=== PATIENT | female | born 1955 | race Caucasian/White ===

== ENCOUNTER → 2019-01-19 | Outpatient (CLI) | payer BC ==
[2019-01-19 13:32] VITALS: BP 114/72; PULSE 80; RESP 16; TEMP 98.5; BMI 27.1
--- NOTE | 2019-01-19 14:20 | P.HPOB ---
History of Present Illness H&P Date: 01/19/19 Chief Complaint: The patient is here for her routine gynecologic exam and ma mmogram. This is a 63-year-old a with an LMP of approximately 2008. The patient is here to establish with this office. It has been about 5 years since her last pelvic exam. The patient is without gynecologic complaints and denies any postmenopausal bleeding. Review of Systems The patient's weight has been stable over the last year. She denies respiratory, cardiac, or G.I. problems. Past Medical History Past Medical History: Asthma, GERD/Reflux, Hyperlipidemia, Skin Disorder Additional Past Medical History / Comment(s): Seasonal allergies, glaucoma, IBS ,ROSACEA. 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 History of Any Multi-Drug Resistant Organisms: None Reported Past Surgical History: Orthopedic Surgery Additional Past Surgical History / Comment(s): X 2, MULT BARTHOLIN GLAND EXCISIONS, BONE SPUR REMOVED FROM WRIST,BUNNIONECTOMY JODIE FEET. Colonoscopy 2013(2nd). Past Anesthesia/Blood Transfusion Reactions: Motion Sickness Past Psychological History: Anxiety, Depression Smoking Status: Former smoker Past Alcohol Use History: None Reported Additional Past Alcohol Use History / Comment(s): QUIT SMOKING APPROX , SMOKED APPROX 10 YRS ON AND OFF Past Drug Use History: None Reported Additional History: The patient is and is not seeing anybody at this time. 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 - Past Family History Father Family Medical History: Cancer, Dementia Additional Family Medical History / Comment(s): SKIN CA. Paternal grandfather had leukemia and a paternal aunt had some type of blood cancer. Paternal grandmother had breast cancer. Mother Family Medical History: COPD Additional Family Medical History / Comment(s): Maternal grandmother had diabetes. Medications and Allergies Home Medications Medication Instructions Recorded Confirmed Type ALPRAZolam [Xanax] 0.5 mg PO DAILY PRN 10/17/14 01/19/19 History Cetirizine HCl [Zyrtec] 10 mg PO DAILY 10/17/14 01/19/19 History Dicyclomine HCl [Bentyl] 20 mg PO BID 10/17/14 01/19/19 History Fluticasone Nasal Kersey [Flonase 1 spray EA NOSTRIL DAILY 10/17/14 01/19/19 History Nasal Kersey] Venlafaxine HCl ER [Effexor Xr] 150 mg PO BID 10/17/14 01/19/19 History metroNIDAZOLE 0.75% CREAM 1 applic TOPICAL BID PRN 10/17/14 01/19/19 History [Metrocream] Budesonide-Formot 160-4.5 Mcg 2 puff INHALATION BID 01/19/19 01/19/19 History [Symbicort 160-4.5 Mcg Inhaler] Cholecalciferol [Vitamin D3 (25 5,000 unit PO DAILY 01/19/19 01/19/19 History Mcg = 1000 Iu)] Doxycycline [Vibramycin] 50 mg PO Q12HR 01/19/19 01/19/19 History Ketotifen Fumarate [Zaditor] 1 drop BOTH EYES DAILY 01/19/19 01/19/19 History Latanoprost/Pf [Latanoprost 0.005% 1 drop BOTH EYES HS 01/19/19 01/19/19 History Eye Drop] Multivitamin [Multivitamins Adult 1 each PO DAILY 01/19/19 01/19/19 History Gummies] Super B Complex 1 tab PO DAILY 01/19/19 01/19/19 History Allergies Allergy/AdvReac Type Severity Reaction Status Date / Time Sulfa (Sulfonamide Allergy Rash/Hives Verified 01/19/19 13:32 Antibiotics) codeine AdvReac Nausea & Verified 01/19/19 13:32 Vomiting Exam Vital Signs Temp Pulse Resp BP Pulse Ox 01/19/19 13:28 98.5 F 80 16 114/72 96 Intake and Output 01/18/19 01/19/19 01/19/19 22:59 06:59 14:59 Other: Weight 73.936 kg Height 5'5", weight 163 pounds, BMI 27.1. This is a well-developed well-nourished white female who is alert and oriented times 3 in no acute distress. HEENT: Within normal limits. NECK: Supple without mass or thyromegaly. CHEST AND LUNGS: mildly prolonged expiration, otherwise clear to auscultation. HEART: Regular rate and rhythm. BREASTS: Are without mass or discharge. AXILLARY EXAM: Negative for adenopathy. BACK: Negative for CVA tenderness. ABDOMEN: Soft, nontender, without palpable masses. PELVIC EXAM: Normal external genitalia with mild atrophy. Cervix and vagina appear normal with mild atrophy. The cervix appears nulliparous and is somewhat stenotic secondary to atrophy. There is no unusual discharge. There is no evidence of prolapse. The uterus is midposition, nongravid size and nontender. There are no palpable adnexal masses or tenderness. RECTAL EXAM: rectovaginal exam is negative for mass or tenderness and is negative for occult blood. EXTREMITIES: Nontender. IMPRESSION: 1. 63-year-old menopausal female with normal gynecologic exam. PLAN: 1. Pap smear was performed. 2. Self breast awareness was discussed with the patient. 3. Screening mammogram will be done today. 4. Osteoporosis prevention was discussed. I have stressed the importance of adequate calcium, vitamin D and regular exercise. Recommended amounts of calcium and vitamin D were also discussed. The patient states she had a normal bone density test approximately [address] Tapia's office. 5. She was advised to return in one year for her annual well woman exam.
--- NOTE | 2019-01-21 09:45 | MM ---
Reason for exam: screening (asymptomatic). Last mammogram was performed 3 years and 10 months ago. History: Patient is postmenopausal. Family history of breast cancer in paternal grandmother at age 80. Physical Findings: A clinical breast exam by your physician is recommended on an annual basis and results should be correlated with mammographic findings. MG Screening Mammo w CAD Bilateral CC and MLO view(s) were taken. Prior study comparison: March 06, 2015, bilateral MG screening mammo w CAD. August 03, 2013, bilateral digital screening mammo w/CAD. The breast tissue is heterogeneously dense. This may lower the sensitivity of mammography. No significant changes when compared with prior studies. ASSESSMENT: Benign, BI-RAD 2 RECOMMENDATION: Routine screening mammogram of both breasts in 1 year.
== END ==
LOC: WWCWWP 13:07
PROVIDERS: ATTEND Obstetrics & Gynecology
DX: Z12.31 Encounter for screening mammogram for malignant neoplasm of breast (principal)
CPT/HCPCS: 77067

== ENCOUNTER → 2021-08-13 | Outpatient (CLI) | payer MEDICARE ==
[~2021-08-13] MED LIST: REGADENOSON 0.4 MG/5 ML SYRINGE IV PRN
--- NOTE | 2021-08-13 11:12 | P.STRESS ---
- Stress Test Note Stress Test Results/Findings: Exam Performed: NM stress lexiscan cardiolite Exam Date: 08/13/21 Reason for Exam: CHEST PAIN Height: 5 ft 5 in Weight: 70.5 kg Protocol: LEXISCAN Stage: NA Duration of Exercise: 5 MINUTE Resting Heart Rate: 76 Resting Blood Pressure: 117/77 Maximum Achieved Heart Rate: 97 Maximum Achieved Blood Pressure: 135/67 85% PMHR: 132 100% PMHR: 155 METS: NA Technologist Comment: Stress Test Results/Findings: This is a 66-year-old female with history of smoking being evaluated for symptoms of chest pain. Stress data: Baseline EKG showed sinus rhythm. Blood pressure at rest is 117/77 with pulse rate of 76. A standard dose of Lexiscan was infused. EKGs taken during and after infusion did not reveal any significant changes from baseline. Patient did not experience any chest pain. Final impression: #1. Negative Lexiscan stress test #2. Report of the nuclear images to be provided by the radiologist.
--- NOTE | 2021-08-13 11:47 | NM ---
EXAMINATION TYPE: NM stress lexiscan cardiolite DATE OF EXAM: 08/13/2021 COMPARISON: NONE HISTORY: Chest pain TECHNIQUE: After the intravenous administration of 9.7 mCi Tc 99m Sestamibi - Cardiolite resting SPE CT images acquired 45 minutes post injection. The patient received 0.4mg Lexiscan, 26.1 mCi Tc 99m Sestamibi - Stress images obtained [address] injection FINDINGS: Review of stress and rest SPECT images demonstrates some decreased uptake along the septum on stress as compared to rest images towards the base of the heart, questionable decreased uptake inferolateral left ventricle on stress as compared to rest images. Gated analysis shows normal wall motion with a n estimated left ventricular ejection fraction of 82 %. 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 Attempt to report to the referring clinician's office at the time of interpretation by telephone, phone was not answered.
== END | disposition home or self-care (01) ==
LOC: RADNMMAIN 08:23
PROVIDERS: ATTEND Family Medicine
DX: R07.89 Other chest pain (principal)
CPT/HCPCS: 93017; 78452; A9500; J2785

== ENCOUNTER → 2022-07-26 | Outpatient (CLI) | payer MEDICARE ==
--- NOTE | 2022-07-29 19:28 | MM ---
Reason for Exam: Screening (asymptomatic). Last mammogram was performed 3 year(s) and 6 month(s) ago. Patient History: Menarche at age 16. First Full-Term at age 29. Postmenopausal. Paternal grandmother had breast cancer, age 80. Maternal cousin had breast cancer. Risk Values: Danyelle 5 year model risk: 1.7%. NCI Lifetime model risk: 6.1%. Prior Study Comparison: 08/03/2013 Bilateral Screening Mammogram, [facility]. 03/06/2015 Bilateral Screening Mammogram, [facility]. 01/19/2019 Bilateral Screening Mammogram, [facility]. Tissue Density: The breast tissue is heterogeneously dense. This may lower the sensitivity of mammography. Findings: Analyzed By CAD. There is no suspicious group of microcalcifications or new suspicious mass in either breast. Overall Assessment: Negative, BI-RAD 1 Management: Screening Mammogram of both breasts in 1 year. 1. Patient should continue monthly self breast exams. 2. A clinical breast exam by your physician is recommended on an annual basis. 3. This exam should not preclude additional follow-up of suspicious palpable abnormalities. Electronically signed and approved by: Geronimo Sorenson M.D. Radiologist
== END | disposition home or self-care (01) ==
LOC: RADMAMWWP 14:36
PROVIDERS: ATTEND Family Medicine
DX: Z12.31 Encounter for screening mammogram for malignant neoplasm of breast (principal); Z78.0 Asymptomatic menopausal state; Z80.3 Family history of malignant neoplasm of breast
CPT/HCPCS: 77063; 77067

== ENCOUNTER → 2022-08-20 | Outpatient (CLI) | payer MEDICARE | LOC: CPPFTMAIN 11:36 | PROVIDERS: ATTEND Family Medicine | DX: J45.909 Unspecified asthma, uncomplicated (principal); Z88.5 Allergy status to narcotic agent; Z88.2 Allergy status to sulfonamides; Z87.891 Personal history of nicotine dependence | CPT/HCPCS: 94060; 94726; 94729 ==

== ENCOUNTER → 2022-09-27 | Outpatient (CLI) | payer MEDICARE ==
[2022-09-27 12:19] LABS: African American GFR (CKD) >90 (>60 ml/min/1.73 sqM); Blood Urea Nitrogen 13 mg/dL (7-17); Non-African American GFR(CKD) >90 (>60 ml/min/1.73 sqM)
--- NOTE | 2022-09-27 13:04 | CT ---
EXAMINATION TYPE: CT soft tissue neck w con DATE OF EXAM: 09/27/2022 COMPARISON: None HISTORY: Dentist felt something RT side of neck, possible sialolithiasis, marked by BB CT DLP: 290.60 mGycm CONTRAST: CT scan of the neck is performed with IV Contrast, patient injected with 100 mL of Isovue 300. Contrast enhanced CT of the neck was performed from the skull base through the lung apices. Baby B placed at the site of clinical concern which failed to demonstrate evidence for mass or sialol ith. AIRWAY: The supraglottic, glottic, and subglottic portions of the airway appear patent and free of mass. SALIVARY GLANDS: The submandibular and parotid glands are free of mass or inflammatory process. THYROID GLAND: No nodules or masses seen. LYMPH NODES: No adenopathy seen greater than 1cm. LUNG APICES: No nodule or mass is seen. OTHER: Vascular structures are patent. No significant degenerative change of the cervical spine. N o abscess seen. IMPRESSION: No discrete abnormality appreciated.
== END | disposition home or self-care (01) ==
LOC: RADCTMAIN 11:44
PROVIDERS: ATTEND Family Medicine
DX: K11.5 Sialolithiasis (principal)
CPT/HCPCS: 82565; 84520; 70491; 36415; Q9967

== ENCOUNTER → 2023-02-04 | Outpatient (CLI) | payer MEDICARE ==
--- NOTE | 2023-02-04 10:29 | US ---
EXAMINATION TYPE: US pelvic complete DATE OF EXAM: 02/04/2023 COMPARISON: NONE CLINICAL INDICATION: Female, 67 years old with history of R10.9 ABD PAIN; gen pain and bloating TECHNIQUE: Transabdominal (TA). Transabdominal sonographic images of the pelvis were acquired. EXAM MEASUREMENTS: Uterus: 6.8 x 2.3 x 2.0 cm Endometrial Stripe: 0.4 cm Right Ovary: 3.1 x 2.0 x 2.6 cm Left Ovary: 2.9 x 1.9 x 2.4 cm 1. Uterus: Anteverted wnl 2. Endometrium: wnl 3. Right Ovary: wnl 4. Left Ovary: wnl 5. Bilateral Adnexa: wnl 6. Posterior cul-de-sac: no free fluid seen Unremarkable anteverted uterus. Endometrium is within normal limits. Both ovaries appear unremarkable . No free fluid. IMPRESSION: No ultrasound evidence for an acute pelvic process.
== END | disposition home or self-care (01) ==
LOC: RADUSWWP 09:05
PROVIDERS: ATTEND Family Medicine
DX: R10.84 Generalized abdominal pain (principal)
CPT/HCPCS: 76856

== ENCOUNTER → 2023-05-06 | Outpatient (CLI) | payer MEDICARE | END | disposition home or self-care (01) | LOC: LABWHC1 15:26 | PROVIDERS: ATTEND Orthopaedic Surgery | DX: M25.552 Pain in left hip (principal); Z47.1 Aftercare following joint replacement surgery; Z96.642 Presence of left artificial hip joint | CPT/HCPCS: 36415; 85379; 85652; 86140 ==

== ENCOUNTER → 2023-07-30 | Outpatient (CLI) | payer MEDICARE ==
--- NOTE | 2023-07-31 14:08 | MM ---
Reason for Exam: Screening (asymptomatic). Last mammogram was performed 1 year(s) and 1 month(s) ago. Patient History: Menarche at age 16. First Full-Term at age 29. Postmenopausal. Paternal grandmother had breast cancer, age 80. Maternal cousin had breast cancer. Risk Values: Danyelle 5 year model risk: 1.7%. NCI Lifetime model risk: 5.9%. Prior Study Comparison: 03/06/2015 Bilateral Screening Mammogram, [facility]. 01/19/2019 Bilateral Screening Mammogram, [facility]. 07/26/2022 Bilateral MG 3D screening mammo w/cad, [facility]. Tissue Density: The breasts are heterogeneously dense, which may obscure small masses. Findings: Analyzed By CAD. Right breast: There is no suspicious group of microcalcifications or new suspicious mass. Left breast: There is no suspicious group of microcalcifications or new suspicious mass. Overall Assessment: Negative, BI-RAD 1 Management: Screening Mammogram of both breasts in [address] [facility] will attempt to contact patient to return for supplemental views and ultrasound if indicated. Patient should continue monthly self-breast exams. A clinical breast exam by your physician is recommended on an annual basis. This exam should not preclude additional follow-up of suspicious palpable abnormalities. Note on Danyelle scores and lifetime risk: 1. A Danyelle score greater than 3% is considered moderate risk. If this is the case, consider specialist referral to assess eligibility for a risk reducing agent. 2. If overall lifetime risk for the development of breast cancer is 20% or higher, the patient may qualify for future screening with alternating mammogram and breast MRI. Electronically signed and approved by: Dhiraj Albarran DO
== END | disposition home or self-care (01) ==
LOC: RADMAMWWP 08:43
PROVIDERS: ATTEND Family Medicine
DX: Z12.31 Encounter for screening mammogram for malignant neoplasm of breast (principal); Z78.0 Asymptomatic menopausal state; Z80.3 Family history of malignant neoplasm of breast
CPT/HCPCS: 77063; 77067

== ENCOUNTER → 2024-07-15 | Outpatient (CLI) | payer MEDICARE ==
--- NOTE | 2024-07-15 15:39 | US ---
EXAMINATION TYPE: US arterial LE single level DATE OF EXAM: 07/15/2024 3:16 PM COMPARISONS: None. CLINICAL INDICATION: Female, 69 years old with history of R94.39 ABNORMAL RESULT OF OTHER CARDIOVASCU LAR FUN; TECHNIQUE: Systolic pressures were taken of the upper and lower extremity arteries with ankle-brachia l indices. History of: Smoker: Previous Hypertension: No Diabetic: No Hyperlipidemia: Yes TIA/CVA: No Previous Vascular Surgery: No CA: No Vascular Ulcers: No Claudication: No Gangrene: No FINDINGS: Doppler Waveforms: Right: Biphasic Left: Biphasic Brachial Artery systolic pressure: Right: 135 Left: 129 Posterior Tibial artery systolic pressure: Right: 154 Left: 170 Dorsalis Pedis artery systolic pressure: Right: 159 Left: 151 Ankle-Brachial Indices: Right: 1.18 Left: 1.26 IMPRESSION: RADHA: Right: Normal 0.9 - 1.4, Recommendation: None Left: Normal 0.9 - 1.4, Recommendation: None [facility], , 07/15/2024 3:37 PM
== END | disposition home or self-care (01) ==
LOC: RADUSWWP 14:52
PROVIDERS: ATTEND Family Medicine
DX: R94.39 Abnormal result of other cardiovascular function study (principal); E78.5 Hyperlipidemia, unspecified
CPT/HCPCS: 93922

== ENCOUNTER → 2024-08-24 | Outpatient (CLI) | payer MEDICARE ==
--- NOTE | 2024-08-24 15:35 | US ---
EXAMINATION TYPE: US venous doppler duplex LE BI DATE OF EXAM: 08/24/2024 3:07 PM COMPARISON: NONE CLINICAL INDICATION: Female, 69 years old with history of L97.909 NON-PRS CHRONIC ULC UNSP PRT OF UNS P LOW L; Discolored toes, Pain TECHNIQUE: The lower extremity deep venous system is examined utilizing real time linear array sonog alfredo with graded compression, color doppler sonography, and spectral doppler. SIDE PERFORMED: Bilateral FINDINGS: VESSELS IMAGED: Common Femoral Vein Deep Femoral Vein Greater Saphenous Vein * Femoral Vein Popliteal Vein Small Saphenous Vein * Proximal Calf Veins (* superficial vessels) Right Leg: Negative for DVT, Color Doppler imaging shows patency of the vessels. Spectral waveforms are within normal limits. Left Leg: Negative for DVT, Color Doppler imaging shows patency of the vessels. Spectral waveforms a re within normal limits. IMPRESSION: No ultrasound evidence for deep venous thrombosis. [facility], , 08/24/2024 3:33 PM
== END | disposition home or self-care (01) ==
LOC: RADUSWWP 14:39
PROVIDERS: ATTEND Family Medicine
DX: L97.909 Non-pressure chronic ulcer of unspecified part of unspecified lower leg with unspecified severity (principal)
CPT/HCPCS: 93970